=== PATIENT | female | born 1955 | race Caucasian/White ===

== ENCOUNTER 2021-10-01 18:06 | Observation (INO) ==
[2021-10-01] MEDS ORDERED: Ipratropium/Albuterol Neb 3 ML IH ONE (19:14)
[2021-10-01 19:20] LABS: Basophils # 0.1 K/mcL (0.0-0.2); Basophils % 1.4 %; Eosinophils # 0.1 K/mcL (0.0-0.6); Eosinophils % 2.5 %; Hematocrit 48.6 % (35.3-44.9); Hemoglobin 15.5 g/dL (11.5-15.4); Immature Granulocytes % 0.4 % (0-4); Lymphocytes # 1.7 K/mcL (0.6-4.6); Lymphocytes % 32.9 %; Mean Corpuscular HGB Conc 31.9 g/dL (31.6-35.5); Mean Corpuscular Hemoglobin 29.2 pg (28.0-33.3); Mean Corpuscular Volume 91.7 fL (83.0-100.0); Mean Platelet Volume 11.3 fL (9.4-12.4); Monocytes # 0.8 K/mcL (0.0-1.3); Monocytes % 16.4 %; Neutrophils # 2.4 K/mcL (1.6-8.9); Platelet Count 186 K/mcL (140-400); Segmented Neutrophils % 46.4 %; White Blood Count 5.1 K/mcL (4.3-11.1)
[2021-10-01 19:35] LABS: BUN/Creatinine Ratio 11 (6-26); Blood Urea Nitrogen 7 mg/dL (8-23); Calcium 9.6 mg/dL (8.6-10.3); Carbon Dioxide 30 mEq/L (23-29); Chloride 99 mEq/L (98-107); Glucose 116 mg/dL (70-105); Osmolality,Calculated 283 (280-300); Potassium 3.5 mEq/L (3.5-5.1); Sodium 137 mEq/L (136-145); Troponin I < 0.03 ng/mL (< 0.04)
[2021-10-01] MEDS ORDERED: Dextrose Gel 15 GM/37.5 ML TUBE PO PRN ×2 (22:30)
[2021-10-01] MEDS ORDERED: Melatonin 3 MG TABLET PO PRN (22:30)
[2021-10-01] MEDS ORDERED: D5% in Water 1,000 ML IVC PRN (22:30)
[2021-10-01] MEDS ORDERED: Naloxone 0.4 MG/ML INJ IVP PRN (22:30)
[2021-10-01] MEDS ORDERED: *HR* Dextrose 50 % in Water (Syg) 50 ML SYRINGE IVP PRN (22:30)
[2021-10-01] MEDS ORDERED: Insulin LISPRO 300 UNITS/3 ML VIAL SUBQ SCH (22:45)
[2021-10-02] MEDS ORDERED: Acetaminophen 325 MG TABLET PO PRN (03:50)
[2021-10-02 08:14] VITALS: BP 114/76; PULSE 86; TEMP 97.7
[2021-10-02] MEDS: Insulin LISPRO 300 UNITS/3 ML VIAL SUBQ SCH ×2 (08:49→12:52)
[2021-10-02] MEDS ORDERED: Chlorhexidine Rinse 15 ML MOUTHWASH MM SCH (09:00)
[2021-10-02] MEDS ORDERED: Tiotropium 10 INH DOSE IH SCH (10:00)
[2021-10-02 13:21] VITALS: O2SAT 94
[2021-10-03] MEDS ORDERED: *HR* Enoxaparin 40 MG/0.4 ML SYRINGE SQ SCH (06:00)
== END 2021-10-02 16:50 | disposition home or self-care (01) ==
LOC: EMEROOARM 18:06 → 3NENU 18:06 → SUATTDRO 21:46 → 3ANU 22:05
PROVIDERS: ADMIT Internal Medicine; ATTEND Internal Medicine